=== PATIENT | female | born 1990 | race Hispanic/Latino ===

== ENCOUNTER 2016-10-01 16:41 | Emergency (ER) | payer MEDICAID ==
[2016-10-01 16:49] VITALS: BMI 32.0
[2016-10-01 16:53] VITALS: TEMP 98.6
--- NOTE | 2016-10-01 17:16 | ED PDOC ---
Arrival/HPI - General Chief Complaint: Syncope Time Seen by Provider: 10/01/16 16:46 Historian: Patient - History of Present Illness Narrative History of Present Illness (Text): 10/01/16 17:16 26 year old female with a past medical history that includes seizures presents to the Emergency department complaining of pelvic pain x 4 days. Patient stated pain is described as bilateral, contraction like. Patient also stated vaginal spotting x 2 days, and she passed a large blood clot, which she thinks it could be from miscarriage. Patient stated she had a positive home test done last week, but later she had a negative test. Patient also [place] She was told she had a mild seizure. Patient denies sob, cp, peacock, neck pain, rectal bleeding, dizziness, or abnormal gait. Time/Duration: < week Quality: Cramping Context: Home Past Medical History - Provider Review Nursing Documentation Reviewed: Yes - Infectious Disease Hx of Infectious Diseases: None - Tetanus Immunization Tetanus Immunization: Unknown - Cardiac Hx Cardiac Disorders: No - Pulmonary Hx Respiratory Disorders: Yes Hx Asthma: Yes - Neurological Hx Neurological Disorder: Yes Hx Seizures: Yes - HEENT Hx HEENT Disorder: No - Renal Hx Renal Disorder: No - Endocrine/Metabolic Hx Endocrine Disorders: No - Hematological/Oncological Hx Blood Disorders: Yes Hx Anemia: Yes - Integumentary Hx Dermatological Disorder: No - Musculoskeletal/Rheumatological Hx Musculoskeletal Disorders: Yes Hx Falls: Yes - Gastrointestinal Hx Gastrointestinal Disorders: No - Genitourinary/Gynecological Hx Genitourinary Disorders: No Other/Comment: 2 Miscarriages - Psychiatric Hx Psychophysiologic Disorder: No Hx Depression: No Hx Emotional Abuse: No Hx Physical Abuse: No Hx Substance Use: No - Surgical History Hx Cholecystectomy: Yes - Anesthesia Hx Anesthesia: Yes Hx Anesthesia Reactions: No Hx Malignant Hyperthermia: No - Suicidal Assessment Feels Threatened In Home Enviroment: No Family/Social History - Physician Review Nursing Documentation Reviewed: Yes Family/Social History: No Known Family HX Smoking Status: Heavy Smoker > 10 Cigarettes Daily Hx Alcohol Use: No Hx Substance Use: No Hx Substance Use Treatment: No Allergies/Home Meds Allergies/Adverse Reactions: Allergies No Known Allergies Allergy (Verified 10/01/16 16:53) Review of Systems - Review of Systems Constitutional: Normal. absent: Fatigue, Weight Change, Fevers Eyes: Normal ENT: Normal Respiratory: Normal Cardiovascular: Normal Gastrointestinal: Normal Genitourinary Female: Other (pelvi pain). absent: Dysuria, Frequency, Hematuria Musculoskeletal: Normal Skin: Normal Neurological: Normal Endocrine: Normal Hemo/Lymphatic: Normal Psychiatric: Normal Physical Exam Vital Signs Temp Pulse Resp BP Pulse Ox 10/01/16 19:59 78 18 109/53 L 100 10/01/16 16:50 98.6 F 97 H 16 126/80 99 Temperature: Afebrile Blood Pressure: Normal Pulse: Regular Respiratory Rate: Normal Appearance: Positive for: Well-Appearing, Non-Toxic, Comfortable Pain Distress: None Mental Status: Positive for: Alert and Oriented X 3 - Systems Exam Head: Present: Atraumatic, Normocephalic Pupils: Present: PERRL Extroacular Muscles: Present: EOMI Conjunctiva: Present: Normal Ears: Present: NORMAL TM, Normal Canal. No: Erythema, TM Bulging, Fluid, TM Perf Mouth: Present: Moist Mucous Membranes Pharnyx: Present: Normal. No: ERYTHEMA, EXUDATE, TONSILS ENLARGED Neck: Present: Normal Range of Motion. No: Meningeal Signs Respiratory/Chest: Present: Clear to Auscultation, Good Air Exchange. No: Respiratory Distress, Accessory Muscle Use Cardiovascular: Present: Regular Rate and Rhythm, Normal S1, S2. No: Murmurs Abdomen: Present: Normal Bowel Sounds. No: Tenderness, Distention, Peritoneal Signs, Rebound, Guarding Genitourinary/Pelvic Exam: Present: Other (Deferred by patient) Back: Present: Normal Inspection. No: CVA Tenderness Upper Extremity: Present: Normal Inspection, Normal ROM, NORMAL PULSES. No: Cyanosis, Edema Lower Extremity: Present: Normal Inspection, NORMAL PULSES, Normal ROM. No: Edema Neurological: Present: GCS=15, CN II-XII Intact, Speech Normal Skin: Present: Warm, Dry, Normal Color. No: Rashes Psychiatric: Present: Alert, Oriented x 3, Normal Insight, Normal Concentration Medical Decision Making ED Course and Treatment: 10/01/16 19:35 Re-evaluation. Patient feels better. Discussed results and plan with patient who expresses understanding. All questions answered and there is agreement with the plan to discharge home with instructions. Patient stable for discharge. Return if symptoms persist or worsen. I reviewed lab result which shows negative for . Pelvic u/s shows no acute changes Re-evaluation Time: 19:35 Reassessment Condition: Re-examined, Improved - Lab Interpretations Lab Results: 10/01/16 17:40 10/01/16 17:40 Lab Results 10/01/16 17:40: Urine Opiates Screen Positive H, Urine Methadone Screen Negative , Ur Barbiturates Screen Negative, Ur Phencyclidine Scrn Negative, Ur Amphetamines Screen Negative, U Benzodiazepines Scrn Positive H, U Oth Cocaine Metabols Negative, U Cannabinoids Screen Positive H 10/01/16 17:40: Urine Color Yellow, Urine Appearance Clear, Urine pH 7.0, Ur Specific [place] 1.010, Urine Protein Negative, Urine Glucose (UA) Negative, Urine Ketones Negative, Urine Blood Trace-lysed H, Urine Nitrate Negative, Urine Bilirubin Negative, Urine Urobilinogen 0.2, Ur Leukocyte Esterase Negative , Urine RBC 2 - 5, Urine WBC 5 - 10, Ur Epithelial Cells 3 - 4, Urine Bacteria Few, Urine HCG, Qual Negative 10/01/16 17:40: Beta HCG, Quant < 2.39 10/01/16 17:40: Sodium 141, Potassium 3.7, Chloride 104, Carbon Dioxide 29, Anion Gap 12, BUN 12, Creatinine 0.7, Est GFR ( Amer) > 60, Est GFR (Non- Af Amer) > 60, Random Glucose 93, Calcium 9.2, Total Bilirubin 0.7, AST 46 H, ALT 37, Alkaline Phosphatase 61, Total Protein 7.2, Albumin 4.1, Globulin 3.2, Albumin/Globulin Ratio 1.3 10/01/16 17:40: PT 11.1, INR 1.03, APTT 26.2 10/01/16 17:40: WBC 9.8, RBC 5.49, Hgb 10.9 L, Hct 33.5 L, MCV 61.0 L, MCH 19.9 L, MCHC 32.5, RDW 16.9 H, Plt Count 278, Gran % 73.8 H, Lymph % (Auto) 21.1 L, Yancey % (Auto) 4.7, Eos % (Auto) 0.2 L, Baso % (Auto) 0.2, Gran # 7.26 H, Lymph # 2.1, Yancey # 0.5, Eos # 0.0, Baso # 0.02 I have reviewed the lab results: Yes Interpretation: Abnormal lab values - RAD Interpretation Narrative RAD Interpretations (Text): [facility] Division of Radiology [address] [place] [address] Tel. no. Patient Name: LUL LAMAR Pt. Address: [address] [place] [address] Rec #: [id number] [place] [address]: Soraya Silver PA-C Pt Order Location: ED : 1990 Female Age: 26 Order #: [id number] Reason for exam: pelvic pain Ultrasound TRANSVAGINAL Exam Date: 10/01/16 This imaging exam was performed at [facility] EXAM: US Pelvis Complete, Transabdominal CLINICAL HISTORY: 26 years old, female; Pain; Pelvic pain TECHNIQUE: Real-time transabdominal pelvic ultrasound (complete) with image documentation. COMPARISON: There are no prior studies for comparison. FINDINGS: Bladder: Bladder is incompletely distended which limits evaluation. Uterus: Uterus is anteflexed. Uterus measures approximately 8.5 x 3.1 x 5 cm. . Endometrium measures approximately 8 mm in width. Adnexa: Right ovary measures approximately 3.4 x 2.2 x 3.1 cm. There are multiple small follicles. Left ovary could not be identified IMPRESSION: Limited transabdominal pelvic ultrasound with nonvisualization of the left ovary; normal appearing uterus and right ovary EXAM: US Pelvis, Transvaginal CLINICAL HISTORY: 26 years old, female; Pain; Pelvic pain TECHNIQUE: Real-time transvaginal pelvic ultrasound (complete) with image documentation. Transvaginal imaging was used for better evaluation of the endometrium and adnexa. EXAM DATE/TIME: 10/01/2016 5:30 PM COMPARISON: There are no prior studies for comparison. FINDINGS: Uterus measures approximately 8 x 4 x 5 cm. Endometrium measures approximately 8mm in width. Right ovary: Right ovary measures approximately 3.93 x 3.13 x 2.94 cm. There is a dominant follicle are seen 2.2 cm in maximal dimension. There are additional smaller follicles. There is expected blood flow on Doppler imaging Left ovary: Left ovary measures approximately 2.75 x 2.55 x 1.56 cm.There are multiple small follicles. There is intraovarian blood flow. Cul-de-sac: There is trace free fluid in the cul-de-sac IMPRESSION: Normal transvaginal pelvic ultrasound Dictated By: Julia Ferrer MD, MD Dictated Date/Time: 10/01/162026 Signed By: Julia Ferrer MD Date Signed: 2026 Transcribed By: LUL Transcribe Date/Time : 10/01/162026 Radiology Orders: 10/01/16 17:30 TRANSVAGINAL [US] Stat - Medication Orders Current Medication Orders: Discontinued Medications Ceftriaxone Sodium (Rocephin) 250 mg IM STAT STA PRN Reason: Protocol Stop: 10/01/16 19:36 Last Admin: 10/01/16 19:57 Dose: 250 mg Doxycycline Hyclate (Doryx) 100 mg PO STAT STA PRN Reason: Protocol Stop: 10/01/16 19:37 Last Admin: 10/01/16 19:57 Dose: 100 mg Sodium Chloride (Sodium Chloride 0.9%) 500 mls @ 1,000 mls/hr IV .Q30M STA Stop: 10/01/16 17:59 Last Admin: 10/01/16 17:40 Dose: 1,000 mls/hr Levetiracetam (Keppra 500mg Ivpb) 500 mg in 100 mls @ 400 mls/hr IVPB STAT STA Stop: 10/01/16 18:24 Last Admin: 10/01/16 18:50 Dose: 400 mls/hr Lidocaine HCl (Lidocaine 1% (20ml)) Confirm Administered Dose 20 ml .ROUTE .STK- MED ONE Stop: 10/01/16 19:52 Last Admin: 10/01/16 19:57 Dose: 1 ml Morphine Sulfate (Morphine) Confirm Administered Dose 2 mg .ROUTE .STK-MED ONE Stop: 10/01/16 19:22 Last Admin: 10/01/16 19:27 Dose: Morphine Sulfate (Morphine) 2 mg IVP STAT STA Stop: 10/01/16 19:26 Last Admin: 10/01/16 19:27 Dose: 2 mg Ondansetron HCl (Zofran Inj) 4 mg IVP STAT STA Stop: 10/01/16 17:31 Last Admin: 10/01/16 17:40 Dose: 4 mg Disposition/Present on Arrival - Present on Arrival Any Indicators Present on Arrival: No History of DVT/PE: No History of Uncontrolled Diabetes: No Urinary Catheter: No History of Decub. Ulcer: No History Surgical Site Infection Following: None - Disposition Have Diagnosis and Disposition been Completed?: Yes Diagnosis: Acute cystitis, Pelvic pain, Polysubstance abuse Disposition: HOME/ ROUTINE Disposition Time: 19:37 Patient Plan: Discharge Condition: GOOD Discharge Instructions (ExitCare): Urinary Tract Infection in Women (ED), Pelvic Pain in Women (ED) Additional Instructions: Call private doctor for follow up visit in 1-2 days. Take medication as instructed. Avoid excessive sun exposure. Take medication with food. Return to emergency if symptoms worsen. Prescriptions: Cephalexin [Keflex] 500 mg PO BID #10 capsule Doxycycline Monohydrate 100 mg PO BID #14 tablet Phenazopyridine HCl [Pyridium] 200 mg PO TID #9 tablet Referrals: PCP,NO [Primary Care Provider] - Follow up with primary [facility] [Outside] - [facility] with [facility] [Outside] - Follow up with primary Forms: WORK NOTE
[2016-10-01] MEDS ORDERED: Sodium Chloride 0.9% 500 ML IV STA (17:30)
[2016-10-01 17:51] LABS: ADD MANUAL DIFF? NO
[2016-10-01] MEDS ORDERED: levETIRAcetam 500mg IVPB 500 MG/100 ML BAG IVPB STA (18:10)
[2016-10-01 18:33] LABS: BASO # 0.02 K/mm3 (0.0-2.0); BASO % 0.2 % (0.0-3.0); EOS % 0.2 % (1.5-5.0); GRAN # 7.26 (1.4-6.5); GRAN % 73.8 % (50.0-68.0); HEMATOCRIT 33.5 % (36.0-48.0); LYMPH # 2.1 (1.2-3.4); LYMPH % 21.1 % (22.0-35.0); MEAN CORPUSCULAR HEMOGLOBIN 19.9 pg (25.0-35.0); MEAN CORPUSCULAR HGB CONC 32.5 g/dl (31.0-37.0); MONO # 0.5 (0.1-0.6); MONO % 4.7 % (1.0-6.0); PLATELET COUNT 278 10^3/uL (120.0-450.0); RED CELL DISTRIBUTION WIDTH 16.9 % (11.5-14.5); WHITE BLOOD COUNT 9.8 10^3/ul (4.5-11.0)
[2016-10-01 18:39] LABS: URINE BILIRUBIN NEGATIVE (NEGATIVE); URINE BLOOD TRACE-LYSED (NEGATIVE); URINE GLUCOSE (UA) NEGATIVE (NEGATIVE); URINE KETONE NEGATIVE (NEGATIVE); URINE LEUKOCYTE ESTERASE NEGATIVE Leu/uL (NEGATIVE); URINE PROTEIN NEGATIVE mg/dL (<30 mg/dL); URINE UROBILINOGEN 0.2 E.U./dL (<1 E.U./dL)
[2016-10-01 18:41] LABS: ALB/GLOB RATIO 1.3 (1.1-1.8); ALKALINE PHOSPHATASE 61 U/L (38-133); ALT/SGPT 37 U/L (7-56); AST/SGOT 46 U/L (15-39); BILIRUBIN,TOTAL 0.7 mg/dL (0.2-1.3); BLOOD UREA NITROGEN 12 mg/dL (7-21); CALCIUM 9.2 mg/dL (8.4-10.5); CARBON DIOXIDE 29 mmol/L (21-33); CHLORIDE 104 mmol/L (98-107); GFR AFRICAN-AMERICAN > 60; GLUCOSE,RANDOM 93 mg/dL (70-110); POTASSIUM 3.7 mmol/L (3.6-5.0); SODIUM 141 mmol/L (132-148); TOTAL PROTEIN 7.2 g/dL (5.8-8.3)
[2016-10-01 18:45] LABS: URINE APPEARANCE CLEAR (CLEAR); URINE COLOR YELLOW (YELLOW)
[2016-10-01 18:58] LABS: URINE BACTERIA FEW (NEG)
[2016-10-01 18:59] LABS: INR 1.03 (0.93-1.08); PARTIAL THROMBOPLASTIN TIME 26.2 Seconds (23.7-30.8)
[2016-10-01] MEDS ORDERED: Morphine 2 mg/ml ISec ONE (19:21)
[2016-10-01] MEDS ORDERED: Morphine 2 mg/ml ISec IVP STA (19:25)
[2016-10-01] MEDS ORDERED: cefTRIAXone (Rocephin) 250 mg Inj IM STA (19:35)
[2016-10-01] MEDS ORDERED: Lidocaine 1% Inj (20ml) ONE (19:51)
[2016-10-01 20:00] VITALS: BP 109/53; PULSE 78; RESP 18; O2SAT 100
--- NOTE | 2016-10-01 21:05 | US ---
EXAM: US Pelvis Complete, Transabdominal CLINICAL HISTORY: 26 years old, female; Pain; Pelvic pain TECHNIQUE: Real-time transabdominal pelvic ultrasound (complete) with image documentation. COMPARISON: There are no prior studies for comparison. FINDINGS: Bladder: Bladder is incompletely distended which limits evaluation. Uterus: Uterus is anteflexed. Uterus measures approximately 8.5 x 3.1 x 5 cm. . Endometrium measures approximately 8 mm in width. Adnexa: Right ovary measures approximately 3.4 x 2.2 x 3.1 cm. There are multiple small follicles. Left ovary could not be identified IMPRESSION: Limited transabdominal pelvic ultrasound with nonvisualization of the left ovary; normal appearing uterus and right ovary EXAM: US Pelvis, Transvaginal CLINICAL HISTORY: 26 years old, female; Pain; Pelvic pain TECHNIQUE: Real-time transvaginal pelvic ultrasound (complete) with image documentation. Transvaginal imaging was used for better evaluation of the endometrium and adnexa. EXAM DATE/TIME: 10/01/2016 5:30 PM COMPARISON: There are no prior studies for comparison. FINDINGS: Uterus measures approximately 8 x 4 x 5 cm. Endometrium measures approximately 8mm in width. Right ovary: Right ovary measures approximately 3.93 x 3.13 x 2.94 cm. There is a dominant follicle are seen 2.2 cm in maximal dimension. There are additional smaller follicles. There is expected blood flow on Doppler imaging Left ovary: Left ovary measures approximately 2.75 x 2.55 x 1.56 cm.There are multiple small follicles. There is intraovarian blood flow. Cul-de-sac: There is trace free fluid in the cul-de-sac IMPRESSION: Normal transvaginal pelvic ultrasound
== END 2016-10-01 20:13 | disposition home or self-care (01) ==
LOC: ED 16:41
DX: N30.00 Acute cystitis without hematuria (principal); R10.2 Pelvic and perineal pain; F19.10 Other psychoactive substance abuse, uncomplicated; D64.9 Anemia, unspecified
CPT/HCPCS: 76830; 80053; 80324; 80345; 80346; 80349; 80353; 80358; 80361; 81001; 83992; 84702; 84703; 85025; 85610; 85730; 96372; 96374; 96375; 99285; J0696; J1953; J2270; J2405; J7040

== ENCOUNTER 2016-10-12 09:54 | Emergency (ER) | payer MEDICAID ==
[2016-10-12 10:00] VITALS: BMI 47.8
[2016-10-12 10:03] VITALS: TEMP 98.8; O2SAT 100
--- NOTE | 2016-10-12 10:13 | ED PDOC ---
Arrival/HPI - General Chief Complaint: Abdominal Pain Time Seen by Provider: 10/12/16 10:07 Historian: Patient - History of Present Illness Narrative History of Present Illness (Text): 10/12/16 10:10 26 y/o female, pmh including seizure/ovarian cyst, nkda, c/o lt. pelvic cramp started this morning x 1 day. Pt. stated that the pelvic cramp started this morning, lt. pelvic region, no nausea or vomiting, last bowel movement was this morning, no night sweat, no dizziness, no night sweat, no headache, no vaginal bleeding or discharge, no numbness or tingling, no fever or chills, no change in appetize, no other medical or psychological complaints. Past Medical History - Provider Review Nursing Documentation Reviewed: Yes - Infectious Disease Hx of Infectious Diseases: None - Tetanus Immunization Tetanus Immunization: Unknown - Cardiac Hx Cardiac Disorders: No - Pulmonary Hx Respiratory Disorders: Yes Hx Asthma: Yes - Neurological Hx Neurological Disorder: Yes Hx Seizures: Yes - HEENT Hx HEENT Disorder: No - Renal Hx Renal Disorder: No - Endocrine/Metabolic Hx Endocrine Disorders: No - Hematological/Oncological Hx Blood Disorders: Yes Hx Anemia: Yes - Integumentary Hx Dermatological Disorder: No - Musculoskeletal/Rheumatological Hx Musculoskeletal Disorders: Yes Hx Falls: Yes - Gastrointestinal Hx Gastrointestinal Disorders: No - Genitourinary/Gynecological Hx Genitourinary Disorders: No - Psychiatric Hx Psychophysiologic Disorder: No Hx Depression: No Hx Emotional Abuse: No Hx Physical Abuse: No Hx Substance Use: No - Surgical History Hx Cholecystectomy: Yes - Anesthesia Hx Anesthesia: Yes Hx Anesthesia Reactions: No Hx Malignant Hyperthermia: No - Suicidal Assessment Feels Threatened In Home Enviroment: No Family/Social History - Physician Review Nursing Documentation Reviewed: Yes Family/Social History: Unknown Family HX Smoking Status: Heavy Smoker > 10 Cigarettes Daily Hx Alcohol Use: No Hx Substance Use: No Hx Substance Use Treatment: No Allergies/Home Meds Allergies/Adverse Reactions: Allergies No Known Allergies Allergy (Verified 10/12/16 09:59) Review of Systems - Review of Systems Constitutional: absent: Fatigue, Fevers Eyes: absent: Vision Changes ENT: absent: Hearing Changes Respiratory: absent: SOB, Cough Cardiovascular: absent: Chest Pain Gastrointestinal: absent: Abdominal Pain, Nausea, Vomiting Genitourinary Female: Other (pelvic pain). absent: Dysuria, Frequency, Hematuria, Urine Output Changes, Vaginal Bleeding, Vaginal Discharge Skin: absent: Rash, Pruritis, Skin Lesions, Laceration, Abscess, Ulcer, Cellulitis Psychiatric: absent: Anxiety, Depression, Suicidal Ideation Physical Exam Vital Signs Reviewed: Yes Vital Signs Temp Pulse Resp BP Pulse Ox 10/12/16 10:00 98.8 F 78 16 115/79 100 Temperature: Afebrile Blood Pressure: Normal Pulse: Regular Respiratory Rate: Normal Appearance: Positive for: Well-Appearing, Non-Toxic, Comfortable Pain Distress: Moderate Mental Status: Positive for: Alert and Oriented X 3 - Systems Exam Head: Present: Atraumatic, Normocephalic Pupils: Present: PERRL Extroacular Muscles: Present: EOMI Conjunctiva: Present: Normal Mouth: Present: Moist Mucous Membranes Neck: Present: Normal Range of Motion Respiratory/Chest: Present: Clear to Auscultation, Good Air Exchange. No: Respiratory Distress, Accessory Muscle Use Cardiovascular: Present: Regular Rate and Rhythm, Normal S1, S2. No: Murmurs Abdomen: Present: Normal Bowel Sounds. No: Tenderness, Distention, Peritoneal Signs, Rebound, Guarding, Hernias Genitourinary/Pelvic Exam: Present: Other (Pt. refused pelvic examination. ) Back: Present: Normal Inspection. No: CVA Tenderness, Midline Tenderness, Paraspinal Tenderness, Pain with Leg Raise, Decubitus Ulcer Upper Extremity: Present: Normal Inspection. No: Cyanosis, Edema Lower Extremity: Present: Normal Inspection. No: Edema Neurological: Present: GCS=15, Speech Normal, Motor Func Grossly Intact, Gait Normal, Memory Normal Skin: Present: Warm, Dry, Normal Color. No: Rashes Lymphatic: No: Cervical Adenopathy Psychiatric: Present: Alert, Oriented x 3, Normal Insight, Normal Concentration Medical Decision Making ED Course and Treatment: 10/12/16 10:19 -ua -transvaginal sonogram -Toradol IM -observe and reassess 10/12/16 11:36 -UA show no UTI -Sonogram show ovarian cysts, advised repeat sonogram in 6-8 weeks with the obgyn -Pain decreased which she will like additional pain med, percocet order, will discharge home. -Discharge home with the naproxen, repeat the sonogram within 6-8 weeks or sooner if needed, follow up with your own pmd and obgyn within 2 days, return to the ER for any new or worsening signs or symptoms. - Lab Interpretations Lab Results: Lab Results 10/12/16 10:20: Urine Color Yellow, Urine Appearance Sl cloudy, Urine pH 6.5, Ur Specific [place] 1.020, Urine Protein Negative, Urine Glucose (UA) Negative, Urine Ketones Negative, Urine Blood Moderate H, Urine Nitrate Negative, Urine Bilirubin Negative, Urine Urobilinogen 0.2, Ur Leukocyte Esterase Negative, Urine RBC 5 - 10, Urine WBC 2 - 5, Ur Epithelial Cells 6 - 8, Urine Bacteria Mod I have reviewed the lab results: Yes Interpretation: No clinic. lab abnormalty - RAD Interpretation Radiology Orders: 10/12/16 10:13 TRANSVAGINAL [US] Stat TECHNIQUE: Transabdominal and transvaginal FINDINGS: UTERUS: Measures 7.0 x 4.5 x 5.5 cm. Normal in size and appearance. No fibroid or other mass lesion seen. ENDOMETRIUM: Measures 10 mm in diameter. Unremarkable. CERVIX: No cervical abnormality identified. RIGHT OVARY: Measures 5.0 x 3.5 x 3.9 cm. No solid mass. Normal flow. Two complex cystic masses, 1.9 x 1.6 x 2.1 cm and 1.7 x 1.3 x 2.1 cm. Heterogeneous internal echoes are noted within the cysts. Likely resolving hemorrhagic cyst. Followup transvaginal pelvic ultrasound examination is advised in 6-8 weeks. LEFT OVARY: Measures 3.2 x 2.3 x 2.6 cm. No solid mass. Normal flow. FREE FLUID: No significant free fluid noted. OTHER FINDINGS: None. IMPRESSION: Two complex right ovarian cysts, likely resolving hemorrhagic cyst. Followup transvaginal pelvic ultrasound examination is advised in 6-8 weeks. The examination is otherwise unremarkable. 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 Disposition/Present on Arrival - Present on Arrival Any Indicators Present on Arrival: No History of DVT/PE: No History of Uncontrolled Diabetes: No Urinary Catheter: No History of Decub. Ulcer: No History Surgical Site Infection Following: None - Disposition Have Diagnosis and Disposition been Completed?: Yes Diagnosis: Ovarian cyst Disposition: HOME/ ROUTINE Disposition Time: 11:37 Patient Plan: Discharge Patient Problems: Current Active Problems Problem Status Onset Ovarian cyst Acute Condition: IMPROVED Discharge Instructions (ExitCare): Ovarian Cyst (ED), Polycystic Ovarian Syndrome (ED) Print Language: HUNGARIAN Additional Instructions: Discharge home with the naproxen, repeat the sonogram within 6-8 weeks or sooner if needed, follow up with your own pmd and obgyn within 2 days, return to the ER for any new or worsening signs or symptoms. Prescriptions: Naproxen 500 mg PO BID PRN #20 tab PRN Reason: Other Referrals: PCP,NO [Primary Care Provider] - Follow up with primary Rebeca Hutchins MD [Medical Doctor] - Follow up with primary Forms: WORK NOTE
[2016-10-12 10:31] LABS: PH,URINE 6.5 (4.7-8.0); URINE BILIRUBIN NEGATIVE (NEGATIVE); URINE BLOOD MODERATE (NEGATIVE); URINE GLUCOSE (UA) NEGATIVE (NEGATIVE); URINE KETONE NEGATIVE (NEGATIVE); URINE LEUKOCYTE ESTERASE NEGATIVE Leu/uL (NEGATIVE); URINE PROTEIN NEGATIVE mg/dL (<30 mg/dL); URINE UROBILINOGEN 0.2 E.U./dL (<1 E.U./dL)
[2016-10-12 10:37] LABS: URINE APPEARANCE SL CLOUDY (CLEAR); URINE COLOR YELLOW (YELLOW)
[2016-10-12 10:46] LABS: URINE BACTERIA MOD (NEG)
--- NOTE | 2016-10-12 11:15 | US ---
HISTORY: lt. pelvic pain x 1 day COMPARISON: None available. TECHNIQUE: Transabdominal and transvaginal FINDINGS: UTERUS: Measures 7.0 x 4.5 x 5.5 cm. Normal in size and appearance. No fibroid or other mass lesion seen. ENDOMETRIUM: Measures 10 mm in diameter. Unremarkable. CERVIX: No cervical abnormality identified. RIGHT OVARY: Measures 5.0 x 3.5 x 3.9 cm. No solid mass. Normal flow. Two complex cystic masses, 1.9 x 1.6 x 2.1 cm and 1.7 x 1.3 x 2.1 cm. Heterogeneous internal echoes are noted within the cysts. Likely resolving hemorrhagic cyst. Followup transvaginal pelvic ultrasound examination is advised in 6-8 weeks. LEFT OVARY: Measures 3.2 x 2.3 x 2.6 cm. No solid mass. Normal flow. FREE FLUID: No significant free fluid noted. OTHER FINDINGS: None. IMPRESSION: Two complex right ovarian cysts, likely resolving hemorrhagic cyst. Followup transvaginal pelvic ultrasound examination is advised in 6-8 weeks. The examination is otherwise unremarkable.
[2016-10-12] MEDS ORDERED: Oxycodone/Acetaminophen 5/325 mg Tab PO STA (11:42)
[2016-10-12 12:01] VITALS: BP 108/66; PULSE 70; RESP 18
== END 2016-10-12 12:01 | disposition home or self-care (01) ==
LOC: ED 09:54
DX: N83.201 Unspecified ovarian cyst, right side (principal)
CPT/HCPCS: 76830; 81001; 96372; 99283; J1885

== ENCOUNTER 2016-10-15 09:21 | Emergency (ER) | payer MEDICAID ==
[2016-10-15 09:27] VITALS: BMI 31.1
[2016-10-15 09:38] VITALS: BP 125/81; PULSE 87; RESP 18; TEMP 98.4; O2SAT 100
[2016-10-15] MEDS ORDERED: Sodium Chloride 0.9% 1,000 ML IV STA (09:40)
[2016-10-15 09:51] LABS: ADD MANUAL DIFF? NO; URINE BILIRUBIN NEGATIVE (NEGATIVE); URINE BLOOD SMALL (NEGATIVE); URINE GLUCOSE (UA) NEGATIVE (NEGATIVE); URINE KETONE NEGATIVE (NEGATIVE); URINE LEUKOCYTE ESTERASE NEGATIVE Leu/uL (NEGATIVE); URINE PROTEIN NEGATIVE mg/dL (<30 mg/dL); URINE UROBILINOGEN 0.2 E.U./dL (<1 E.U./dL)
[2016-10-15 09:54] LABS: URINE APPEARANCE CLEAR (CLEAR); URINE COLOR YELLOW (YELLOW)
[2016-10-15 09:58] LABS: URINE BACTERIA FEW (NEG)
--- NOTE | 2016-10-15 09:59 | ED PDOC ---
Arrival/HPI - General Chief Complaint: Abdominal Pain Time Seen by Provider: 10/15/16 09:24 Historian: Patient - History of Present Illness Narrative History of Present Illness (Text): 10/15/16 09:48 26yr old female presents today with diffuse abdominal pain worsening since tuesday. pt states she was seen in the er twice for the same complaint and had 2 transvaginal ultrasounds. pt states she was treated with keflex for UTI on her first visit and states the pain improved slightly but has since returned. pt describes the pain as crampy,achy 8 out of 10 tenderness greatest in the lower abdomen. denies fever/chills. denies n/v/d. no urinary symptoms. no vaginal bleeding or discharge. no other complaints. Time/Duration: 1 week Symptom Onset: Gradual Symptom Course: Worsening Quality: Aching, Cramping Severity Level: 8 Past Medical History - Provider Review Nursing Documentation Reviewed: Yes - Travel History Have you recently traveled outside [place] w/in the past 3 mons?: No - Infectious Disease Hx of Infectious Diseases: None - Tetanus Immunization Tetanus Immunization: Unknown - Cardiac Hx Cardiac Disorders: No - Pulmonary Hx Respiratory Disorders: Yes Hx Asthma: Yes - Neurological Hx Neurological Disorder: Yes Hx Seizures: Yes - HEENT Hx HEENT Disorder: No - Renal Hx Renal Disorder: No - Endocrine/Metabolic Hx Endocrine Disorders: No - Hematological/Oncological Hx Blood Disorders: Yes Hx Anemia: Yes - Integumentary Hx Dermatological Disorder: No - Musculoskeletal/Rheumatological Hx Musculoskeletal Disorders: Yes - Gastrointestinal Hx Gastrointestinal Disorders: No - Genitourinary/Gynecological Hx Genitourinary Disorders: No Other/Comment: L ovarian cyst - Psychiatric Hx Psychophysiologic Disorder: No Hx Substance Use: No - Surgical History Hx Cholecystectomy: Yes - Anesthesia Hx Anesthesia: Yes Hx Anesthesia Reactions: No Hx Malignant Hyperthermia: No - Suicidal Assessment Feels Threatened In Home Enviroment: No Family/Social History - Physician Review Nursing Documentation Reviewed: Yes Family/Social History: Unknown Family HX Smoking Status: Heavy Smoker > 10 Cigarettes Daily Hx Alcohol Use: No Hx Substance Use: No Hx Substance Use Treatment: No Allergies/Home Meds Allergies/Adverse Reactions: Allergies No Known Allergies Allergy (Verified 10/12/16 09:59) Review of Systems - Review of Systems Constitutional: absent: Fatigue, Fevers Respiratory: absent: SOB, Cough Cardiovascular: absent: Chest Pain, Palpitations Gastrointestinal: Abdominal Pain. absent: Constipation, Diarrhea, Nausea, Vomiting, Appetite Changes Genitourinary Female: absent: Dysuria, Frequency, Hematuria, Vaginal Bleeding, Vaginal Discharge Musculoskeletal: absent: Arthralgias, Back Pain, Neck Pain Skin: absent: Rash, Pruritis Neurological: absent: Headache, Dizziness Psychiatric: absent: Anxiety, Depression Physical Exam Vital Signs Reviewed: Yes Vital Signs Temp Pulse Resp BP Pulse Ox 10/15/16 09:37 98.4 F 87 18 125/81 100 Temperature: Afebrile Blood Pressure: Normal Pulse: Regular Respiratory Rate: Normal Appearance: Positive for: Well-Appearing, Non-Toxic, Uncomfortable Pain Distress: Mild Mental Status: Positive for: Alert and Oriented X 3 - Systems Exam Head: Present: Atraumatic Mouth: Present: Moist Mucous Membranes Neck: Present: Normal Range of Motion Respiratory/Chest: Present: Clear to Auscultation, Good Air Exchange. No: Respiratory Distress, Accessory Muscle Use Cardiovascular: Present: Regular Rate and Rhythm, Normal S1, S2. No: Murmurs Abdomen: Present: Tenderness (+ diffuse tenderness, greatest in lower abdomen), Normal Bowel Sounds, Guarding. No: Distention, Peritoneal Signs, Rebound Genitourinary/Pelvic Exam: Present: Normal External Genitalia, Vaginal Discharge (white vaginal discharge), Adenexal Mass, Cervical Motion Tendernes, Cervical os Closed, Odor, Other (chaparoned by SANDEEP MALONE) Back: Present: Normal Inspection. No: CVA Tenderness Upper Extremity: Present: Normal ROM Lower Extremity: Present: Normal ROM Neurological: Present: GCS=15 Skin: Present: Warm, Dry, Normal Color. No: Rashes Psychiatric: Present: Alert, Oriented x 3 Medical Decision Making ED Course and Treatment: 10/15/16 10:00 Patient is nontoxic well appearing with stable vital signs presenting with b/l lower abdominal pain old records reviewed. [place] [employer] aware website checked; no rx's filled. pt given toradol for pain. CBC wnl CMP wnl Lipasewnl Urinalysis + blood CAT scan:FINDINGS: LOWER THORAX: No visible consolidation, pleural effusion, or pneumothorax. LIVER: Unremarkable. GALLBLADDER AND BILE DUCTS: Cholecystectomy. PANCREAS: Unremarkable. SPLEEN: Unremarkable. ADRENALS: Unremarkable. KIDNEYS AND URETERS: The kidneys enhance symmetrically. No hydronephrosis or obstructing calculus identified. VASCULATURE: No aortic aneurysm. BOWEL: Stomach is nondistended. Lack of oral contrast limits evaluation for bowel pathology. Bowel loops appear within normal limits of caliber without evidence of obstruction. Mild-to- moderate constipation. APPENDIX: The appendix appears within normal limits of caliber. No secondary signs of acute appendicitis. PERITONEUM: No significant free fluid. No definite free air. LYMPH NODES: Sub cm mesenteric, retroperitoneal, and bilateral inguinal lymph nodes, nonspecific. BLADDER: Unremarkable. REPRODUCTIVE: The uterus is present. 2.5 x 2.2 cm right adnexal low-density lesion, likely ovarian cyst. BONES: No acute osseous abnormality is detected. OTHER FINDINGS: None. IMPRESSION: 2.5 x 2.2 cm right adnexal low-density lesion, likely ovarian cyst. Pelvic ultrasound may be considered for further evaluation. Mild to moderate constipation. Cholecystectomy. Additional incidental findings as above. Patient reassessment:pt feeling better with medications; still with slight left sided pelvic tenderness; pt with white foul smelling vaginal discharge; pt was partially treated and then had intercourse with partner during treatment; will send GC/chlamydia cultures and have patient f/u with [employer]. will treat in er with rocephin and zithromax. Will d/c home with doxycycline x 14 days. i discussed all findings in depth with the patient; stressed importance of f/u with [employer] and avoiding sexual intercourse until further evaluation with [employer] and test results. advised immediate return if symptoms worsen,persist or if new symptoms develop. Patient verbalizes understanding of discharge instructions and need for immediate followup. all aspects of this case were discussed the attending of record. Impression: pelvic pain, ovarian cyst, vaginal discharge Motrin every 6 hours as needed for pain Tramadol 1 tablet every 6 hours as needed for moderate to severe pain: May cause drowsiness doxycycline; 1 tablet twice daily x 14 days. Follow-up with fashion design professor within the next 2 days follow-up with the primary care physician within the next 2 days Return immediately if symptoms worsen, persist or if new concerning symptoms develop. - Lab Interpretations Lab Results: 10/15/16 09:00 10/15/16 09:00 Lab Results 10/15/16 09:00: WBC 10.0, RBC 5.86, Hgb 11.8 L, Hct 34.7 L, MCV 59.2 L, MCH 20.1 L, MCHC 34.0, RDW 18.9 H, Plt Count 328, Gran % 68.3 H, Lymph % (Auto) 22.1 , Benson % (Auto) 7.5 H, Eos % (Auto) 1.8, Baso % (Auto) 0.3, Gran # 6.85 H, Lymph # 2.2, Benson # 0.8 H, Eos # 0.2, Baso # 0.03 10/15/16 09:00: Sodium 141, Potassium 4.2, Chloride 106, Carbon Dioxide 27, Anion Gap 12, BUN 18, Creatinine 0.7, Est GFR ( Amer) > 60, Est GFR (Non- Af Amer) > 60, Random Glucose 95, Calcium 9.1, Total Bilirubin 0.5, AST 22, ALT 24, Alkaline Phosphatase 58, Total Protein 7.2, Albumin 4.0, Globulin 3.2, Albumin/Globulin Ratio 1.3, Lipase 122 10/15/16 09:00: Urine Color Yellow, Urine Appearance Clear, Urine pH 7.0, Ur Specific [place] 1.020, Urine Protein Negative, Urine Glucose (UA) Negative, Urine Ketones Negative, Urine Blood Small H, Urine Nitrate Negative, Urine Bilirubin Negative, Urine Urobilinogen 0.2, Ur Leukocyte Esterase Negative, Urine RBC 2 - 5, Urine WBC 1 - 3, Ur Epithelial Cells 1 - 3, Urine Bacteria Few , Urine HCG, Qual Negative - RAD Interpretation Radiology Orders: 10/15/16 09:40 ABD & PELVIS IV CONTRAST ONLY [CT] Stat - Medication Orders Current Medication Orders: Discontinued Medications Azithromycin (Zithromax) 1,000 mg PO STAT STA PRN Reason: Protocol Stop: 10/15/16 11:50 Last Admin: 10/15/16 11:59 Dose: 1,000 mg Comments: 1000mg PO Ceftriaxone Sodium (Rocephin) 250 mg IM STAT STA PRN Reason: Protocol Stop: 10/15/16 11:50 Last Admin: 10/15/16 11:57 Dose: 250 mg Comments: . Sodium Chloride (Sodium Chloride 0.9%) 1,000 mls @ 999 mls/hr IV .Q1H1M STA Stop: 10/15/16 10:40 Last Admin: 10/15/16 11:01 Dose: 999 mls/hr Iohexol (Omnipaque 350 100 Ml) Confirm Administered Dose 350 mg .ROUTE .STK-MED ONE Stop: 10/15/16 10:15 Ketorolac Tromethamine (Toradol) 30 mg IVP STAT STA Stop: 10/15/16 09:41 Last Admin: 10/15/16 11:02 Dose: 30 mg Disposition/Present on Arrival - Present on Arrival Any Indicators Present on Arrival: No History of DVT/PE: No History of Uncontrolled Diabetes: No Urinary Catheter: No History of Decub. Ulcer: No History Surgical Site Infection Following: None - Disposition Have Diagnosis and Disposition been Completed?: Yes Diagnosis: Pelvic pain, Vaginal discharge, Ovarian cyst Disposition: HOME/ ROUTINE Disposition Time: 12:05 Patient Plan: Discharge Condition: GOOD Discharge Instructions (ExitCare): Pelvic Pain in Women (ED), Vaginal Discharge (ED) Additional Instructions: Motrin every 6 hours as needed for pain Tramadol 1 tablet every 6 hours as needed for moderate to severe pain: May cause drowsiness doxycycline; 1 tablet twice daily x 14 days. Follow-up with fashion design professor within the next 2 days follow-up with the primary care physician within the next 2 days Return immediately if symptoms worsen, persist or if new concerning symptoms develop. Prescriptions: Doxycycline Hyclate 100 mg PO BID #28 cap traMADol [Ultram] 50 mg PO Q6H PRN #6 tab PRN Reason: moderate to severe pain Referrals: Nico Kimble MD [Staff Provider] - [facility] with [facility] [Outside] - Follow up with primary [facility] [place] [facility] [place] Follow up with primary Kostas Olmedo MD [Staff Provider] - Follow up with primary Forms: WORK NOTE
[2016-10-15 10:01] LABS: BASO # 0.03 K/mm3 (0.0-2.0); BASO % 0.3 % (0.0-3.0); EOS # 0.2 (0.0-0.7); EOS % 1.8 % (1.5-5.0); GRAN # 6.85 (1.4-6.5); GRAN % 68.3 % (50.0-68.0); HEMATOCRIT 34.7 % (36.0-48.0); LYMPH # 2.2 (1.2-3.4); LYMPH % 22.1 % (22.0-35.0); MEAN CELL VOLUME 59.2 fL (80.0-105.0); MEAN CORPUSCULAR HEMOGLOBIN 20.1 pg (25.0-35.0); MONO # 0.8 (0.1-0.6); MONO % 7.5 % (1.0-6.0); PLATELET COUNT 328 10^3/uL (120.0-450.0); RED CELL DISTRIBUTION WIDTH 18.9 % (11.5-14.5)
[2016-10-15 10:06] LABS: ALB/GLOB RATIO 1.3 (1.1-1.8); ALKALINE PHOSPHATASE 58 U/L (38-133); ALT/SGPT 24 U/L (7-56); AST/SGOT 22 U/L (15-39); BILIRUBIN,TOTAL 0.5 mg/dL (0.2-1.3); BLOOD UREA NITROGEN 18 mg/dL (7-21); CALCIUM 9.1 mg/dL (8.4-10.5); CARBON DIOXIDE 27 mmol/L (21-33); CHLORIDE 106 mmol/L (98-107); GFR AFRICAN-AMERICAN > 60; GLUCOSE,RANDOM 95 mg/dL (70-110); LIPASE 122 U/L (23-300); POTASSIUM 4.2 mmol/L (3.6-5.0); SODIUM 141 mmol/L (132-148); TOTAL PROTEIN 7.2 g/dL (5.8-8.3)
[2016-10-15] MEDS ORDERED: Iohexol 350 MG/100 ML VIAL ONE (10:14)
--- NOTE | 2016-10-15 11:06 | CT ---
PROCEDURE: CT Abdomen and Pelvis with contrast HISTORY: abd pain COMPARISON: None available TECHNIQUE: Contrast dose: 100 mL Omnipaque 350 Radiation dose: Total exam DLP = 669.99 mGy-cm. This CT exam was performed using one or more of the following dose reduction techniques: Automated exposure control, adjustment of the mA and/or kV according to patient size, and/or use of iterative reconstruction technique. FINDINGS: LOWER THORAX: No visible consolidation, pleural effusion, or pneumothorax. LIVER: Unremarkable. GALLBLADDER AND BILE DUCTS: Cholecystectomy. PANCREAS: Unremarkable. SPLEEN: Unremarkable. ADRENALS: Unremarkable. KIDNEYS AND URETERS: The kidneys enhance symmetrically. No hydronephrosis or obstructing calculus identified. VASCULATURE: No aortic aneurysm. BOWEL: Stomach is nondistended. Lack of oral contrast limits evaluation for bowel pathology. Bowel loops appear within normal limits of caliber without evidence of obstruction. [id number] constipation. APPENDIX: The appendix appears within normal limits of caliber. No secondary signs of acute appendicitis. PERITONEUM: No significant free fluid. No definite free air. LYMPH NODES: Sub cm mesenteric, retroperitoneal, and bilateral inguinal lymph nodes, nonspecific. BLADDER: Unremarkable. REPRODUCTIVE: The uterus is present. 2.5 x 2.2 cm right adnexal low-density lesion, likely ovarian cyst. BONES: No acute osseous abnormality is detected. OTHER FINDINGS: None. IMPRESSION: 2.5 x 2.2 cm right adnexal low-density lesion, likely ovarian cyst. Pelvic ultrasound may be considered for further evaluation. Mild to moderate constipation. Cholecystectomy. Additional incidental findings as above.
[2016-10-15] MEDS ORDERED: cefTRIAXone (Rocephin) 250 mg Inj IM STA (11:49)
== END 2016-10-15 12:46 | disposition home or self-care (01) ==
LOC: ED 09:21
DX: R10.2 Pelvic and perineal pain (principal); N89.8 Other specified noninflammatory disorders of vagina; N83.201 Unspecified ovarian cyst, right side
CPT/HCPCS: 74177; 80053; 81001; 83690; 84703; 85025; 87491; 87591; 96372; 96374; 99283; J0696; J1885; J7040; Q9967

== ENCOUNTER 2016-12-08 08:03 | Emergency (ER) | payer MEDICAID ==
--- NOTE | 2016-12-08 09:50 | ED PDOC ---
Arrival/HPI - General Time Seen by Provider: 12/08/16 09:30 Historian: Patient - History of Present Illness Narrative History of Present Illness (Text): 12/08/16 08:20 Reyna Rhodes is a 26 year old patient, whose past medical history includes seizure disorder, ovarian cyst, nkda, who presents to the Emergency department complaining of right ankle pain since three days ago. Patient reports that she missed a step and twisted her right ankle and felt her right knee pop. Patient had been feeling fine but states that today she could not walk. Patient denies chest pain, shortness of breath, dizziness, lightheadedness, or palpitation. Patient did not hit their head. Patient denies any loss of consciousness, headache, fever, chills, cough, nausea, vomiting, diarrhea, visual changes, neck pain, or other complaints. PMD: Dr. Gorman Time/Duration: < week (3 days ago) Symptom Onset: Sudden Symptom Course: Unchanged Activities at Onset: Light Modifying Factors (Text): None Context: Walking Associated Symptoms (Text): right ankle pain and right knee pain Past Medical History - Provider Review Nursing Documentation Reviewed: Yes - Infectious Disease Hx of Infectious Diseases: None - Tetanus Immunization Tetanus Immunization: Unknown - Cardiac Hx Cardiac Disorders: No - Pulmonary Hx Respiratory Disorders: Yes Hx Asthma: Yes - Neurological Hx Neurological Disorder: Yes Hx Seizures: Yes - HEENT Hx HEENT Disorder: No - Renal Hx Renal Disorder: No - Endocrine/Metabolic Hx Endocrine Disorders: No - Hematological/Oncological Hx Blood Disorders: Yes Hx Anemia: Yes - Integumentary Hx Dermatological Disorder: No - Musculoskeletal/Rheumatological Hx Musculoskeletal Disorders: Yes - Gastrointestinal Hx Gastrointestinal Disorders: No - Genitourinary/Gynecological Hx Genitourinary Disorders: No Other/Comment: L ovarian cyst - Psychiatric Hx Psychophysiologic Disorder: No Hx Substance Use: No - Surgical History Hx Cholecystectomy: Yes - Anesthesia Hx Anesthesia: Yes Hx Anesthesia Reactions: No Hx Malignant Hyperthermia: No - Suicidal Assessment Feels Threatened In Home Enviroment: No Family/Social History - Physician Review Nursing Documentation Reviewed: Yes Family/Social History: Unknown Family HX Smoking Status: Heavy Smoker > 10 Cigarettes Daily Hx Alcohol Use: No Hx Substance Use: No Hx Substance Use Treatment: No Allergies/Home Meds Allergies/Adverse Reactions: Allergies No Known Allergies Allergy (Verified 12/08/16 10:07) Home Medications: Home Meds Medication Instructions Recorded Confirmed Hydrocodone/Acetaminophen 5 mg PO PRN PRN MDD 6 12/08/16 12/08/16 Review of Systems - Physician Review All systems were reviewed & negative as marked: Yes - Review of Systems Constitutional: absent: Fevers Eyes: absent: Vision Changes Respiratory: absent: SOB Cardiovascular: absent: Chest Pain Musculoskeletal: Other (right knee pain and right ankle pain) Physical Exam Vital Signs Temp Pulse Resp BP Pulse Ox 12/08/16 10:03 98.5 F 63 16 119/78 100 Temperature: Afebrile Blood Pressure: Normal Pulse: Regular Respiratory Rate: Normal Appearance: Positive for: Well-Appearing, Non-Toxic, Comfortable Pain Distress: None Mental Status: Positive for: Alert and Oriented X 3 - Systems Exam Head: Present: Atraumatic, Normocephalic Pupils: Present: PERRL Extroacular Muscles: Present: EOMI Conjunctiva: Present: Normal Mouth: Present: Moist Mucous Membranes Neck: Present: Normal Range of Motion Respiratory/Chest: Present: Clear to Auscultation, Good Air Exchange. No: Respiratory Distress, Accessory Muscle Use Cardiovascular: Present: Regular Rate and Rhythm, Normal S1, S2. No: Murmurs Abdomen: Present: Normal Bowel Sounds. No: Tenderness, Distention, Peritoneal Signs Back: Present: Normal Inspection Upper Extremity: Present: Normal Inspection. No: Cyanosis, Edema Lower Extremity: Present: Edema (right knee and right ankle ), Tenderness ( right knee), Other (right knee ecchymosis) Neurological: Present: GCS=15, CN II-XII Intact, Speech Normal Skin: Present: Warm, Dry, Normal Color. No: Rashes Psychiatric: Present: Alert, Oriented x 3, Normal Insight, Normal Concentration Medical Decision Making ED Course and Treatment: 12/08/16 08:20 Impression: 26 year old female with right knee and right ankle pain. Differential Diagnosis included but are not limited to: right knee and right ankle sprain vs. fracture Plan: -- Right ankle X - ray -- Right patella X - ray -- Toradol -- Reassess and disposition Progress Notes: 12/08/16 11:05 Ankle X-ray: Creator : Janis Quispe V. FINDINGS: BONES: Normal. No fracture. JOINTS: Normal. No osteoarthritis. Ankle mortise maintained. Talar dome intact SOFT TISSUES: Normal. OTHER FINDINGS: None. IMPRESSION: Normal right ankle radiographs 12/08/16 11:10 Patella X-ray: Creator : Janis Quispe V. FINDINGS: BONES:Normal. No fractureA 6.4 x 2.5 cm lateral femoral condylar subchondral radiolucency - possible osteochondritis remnant or osteochondral lesion is noted. Its chronicity is unknown. Lateral patellar tilt noted. JOINTS:Normal. No osteoarthritis. JOINT EFFUSION:None. 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 No joint effusion. Soft tissue swelling antral medial- patellofemoral level. No fracture here suggested. No dislocation is suggested. Lateral patellar tilt noted Patient was placed in a knee immobilizer and given crutches with instructions. Humberto wrap to ankle. She was given instructions to follow up with her pmd and orthopedics. Rest, ice and elevation. - RAD Interpretation Radiology Orders: 12/08/16 09:32 ANKLE RIGHT 3 VIEWS ROUTINE [RAD] Stat KNEE W PATELLA RIGHT 3 VIEW [RAD] Stat - Medication Orders Current Medication Orders: Discontinued Medications Ketorolac Tromethamine (Toradol) 60 mg IM STAT STA Stop: 12/08/16 09:33 Last Admin: 12/08/16 10:12 Dose: 60 mg - Scribe Statement The provider has reviewed the documentation as recorded by the Scribe 12/08/2016 Abby Polanco Provider Scribe Attestation: All medical record entries made by the Scribe were at my direction and personally dictated by me. I have reviewed the chart and agree that the record accurately reflects my personal performance of the history, physical exam, medical decision making, and the department course for this patient. I have also personally directed, reviewed, and agree with the discharge instructions and disposition. Disposition/Present on Arrival - Present on Arrival Any Indicators Present on Arrival: No History of DVT/PE: No History of Uncontrolled Diabetes: No Urinary Catheter: No History Surgical Site Infection Following: None - Disposition Have Diagnosis and Disposition been Completed?: Yes Diagnosis: Knee strain, Ankle strain Disposition: HOME/ ROUTINE Disposition Time: 11:05 Patient Plan: Discharge Condition: IMPROVED Discharge Instructions (ExitCare): Ankle Sprain (ED), Knee Sprain (ED) Additional Instructions: Ms Rhodes, thank you for letting us take care of you today. Your provider was Dr. Alston. You were treated for Knee Sprain/Ankle Sprain. The emergency medical care you received today was directed at your acute symptoms. If you were prescribed any medication, please fill it and take as directed. It may take several days for your symptoms to resolve. Return to the Emergency Department if your symptoms worsen, do not improve, or if you have any other problems. Please contact your doctor or call one of the physicians/clinics you have been referred to that are listed on the Patient Visit Information form that is included in your discharge packet. Bring any paperwork you were given at discharge with you along with any medications you are taking to your follow up visit. Our treatment cannot replace ongoing medical care by a primary care provider (PCP) outside of the emergency department. Thank you for allowing the [facility] team to be part of your care today. If you had an X-Ray or CT scan: A Radiologist will review the ED reading if any change in treatment is needed we will contact you. If you had a blood, urine, or wound culture: It will take several days for the results, if any change in treatment is needed we will contact you. If you had an STI test: It will take 48 hours for the results. Please call after 1 week if you have not heard back. Referrals: [facility] [Outside] - Follow up with primary Bharati Birch MD [Staff Provider] - Follow up with primary Andres Gorman MD [Primary Care Provider] - Follow up with primary Forms: [facility] (Tongan), WORK NOTE
[2016-12-08 10:07] VITALS: BP 119/78; PULSE 63; RESP 16; TEMP 98.5; O2SAT 100
--- NOTE | 2016-12-08 10:59 | RAD ---
PROCEDURE: Right Ankle Radiographs. HISTORY: fall r/o fx COMPARISON: None FINDINGS: BONES: Normal. No fracture. JOINTS: Normal. No osteoarthritis. Ankle mortise maintained. Talar dome intact SOFT TISSUES: Normal. OTHER FINDINGS: None. IMPRESSION: Normal right ankle radiographs.
--- NOTE | 2016-12-08 11:02 | RAD ---
PROCEDURE: Right Knee Radiographs. HISTORY: fall r/o fx COMPARISON: None. FINDINGS: BONES: Normal. No fractureA 6.4 x 2.5 cm lateral femoral condylar subchondral radiolucency - possible osteochondritis remnant or osteochondral lesion is noted. Its chronicity is unknown. Lateral patellar tilt noted. JOINTS: Normal. No osteoarthritis. JOINT EFFUSION: None. 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 No joint effusion . Soft tissue swelling antral medial- patellofemoral level. No fracture here suggested. No dislocation is suggested. Lateral patellar tilt noted
== END 2016-12-08 11:05 | disposition home or self-care (01) ==
LOC: ED 09:27
DX: S96.911A Strain of unspecified muscle and tendon at ankle and foot level, right foot, initial encounter (principal); S86.911A Strain of unspecified muscle(s) and tendon(s) at lower leg level, right leg, initial encounter; X50.1XXA Overexertion from prolonged static or awkward postures, initial encounter; Y93.9 Activity, unspecified
CPT/HCPCS: 29530; 73562; 73610; 96372; 99285; J1885

== ENCOUNTER 2017-01-04 16:35 | Emergency (ER) | payer MEDICAID ==
[2017-01-04 16:45] VITALS: BMI 31.8
[2017-01-04 16:48] VITALS: BP 103/70; PULSE 97; TEMP 100
[2017-01-04] MEDS ORDERED: cefTRIAXone (Rocephin) 1 gm Inj IM STA (16:57)
[2017-01-04] MEDS ORDERED: Acetaminophen 160 mg/5 ml UD PO STA (16:58)
--- NOTE | 2017-01-04 17:01 | ED PDOC ---
Arrival/HPI - General Chief Complaint: ENT Problem Time Seen by Provider: 01/04/17 16:56 Historian: Patient - History of Present Illness Narrative History of Present Illness (Text): 01/04/17 16:58 26 y/o female, pmh including ovarian cyst, nkda, c/o throat pain and painful to swallow with fever x 2 days. Aching throat pain, aggravated by swallowing, no drooling, no night sweat, no difficulty swallowing but has pain, no difficulty turning the neck, no night sweat, no other medical or psychological complaints. Past Medical History - Provider Review Nursing Documentation Reviewed: Yes - Infectious Disease Hx of Infectious Diseases: None - Tetanus Immunization Tetanus Immunization: Unknown - Cardiac Hx Cardiac Disorders: No - Pulmonary Hx Respiratory Disorders: Yes Hx Asthma: Yes - Neurological Hx Neurological Disorder: Yes Hx Seizures: Yes - HEENT Hx HEENT Disorder: No - Renal Hx Renal Disorder: No - Endocrine/Metabolic Hx Endocrine Disorders: No - Hematological/Oncological Hx Blood Disorders: Yes Hx Anemia: Yes - Integumentary Hx Dermatological Disorder: No - Musculoskeletal/Rheumatological Hx Musculoskeletal Disorders: Yes - Gastrointestinal Hx Gastrointestinal Disorders: No - Genitourinary/Gynecological Hx Genitourinary Disorders: No Other/Comment: L ovarian cyst - Psychiatric Hx Psychophysiologic Disorder: No Hx Substance Use: No - Surgical History Hx Cholecystectomy: Yes - Anesthesia Hx Anesthesia: Yes Hx Anesthesia Reactions: No Hx Malignant Hyperthermia: No - Suicidal Assessment Feels Threatened In Home Enviroment: No Family/Social History - Physician Review Nursing Documentation Reviewed: Yes Family/Social History: Unknown Family HX Smoking Status: Heavy Smoker > 10 Cigarettes Daily Hx Alcohol Use: No Hx Substance Use: No Hx Substance Use Treatment: No Allergies/Home Meds Allergies/Adverse Reactions: Allergies No Known Allergies Allergy (Verified 01/04/17 16:45) Review of Systems - Review of Systems Constitutional: Fevers. absent: Fatigue Eyes: absent: Vision Changes ENT: Sore Throat. absent: Hearing Changes, Voice Changes, Rhinorrhea, Epistaxis Respiratory: absent: SOB, Cough Cardiovascular: absent: Chest Pain Gastrointestinal: absent: Abdominal Pain, Diarrhea, Nausea, Vomiting Skin: absent: Rash, Pruritis, Ulcer Neurological: absent: Headache, Dizziness, Gait Changes, Speech Changes, Facial Droop Physical Exam Vital Signs Reviewed: Yes Vital Signs Temp Pulse Resp BP Pulse Ox 01/04/17 16:47 100.0 F H 97 H 19 103/70 100 Temperature: Afebrile Blood Pressure: Normal Pulse: Regular Respiratory Rate: Normal Appearance: Positive for: Well-Appearing, Non-Toxic Pain Distress: Severe Mental Status: Positive for: Alert and Oriented X 3 - Systems Exam Head: Present: Atraumatic, Normocephalic Pupils: Present: PERRL Extroacular Muscles: Present: EOMI Conjunctiva: Present: Normal Mouth: Present: Moist Mucous Membranes Pharnyx: Present: ERYTHEMA, EXUDATE, TONSILS ENLARGED (with exudates), Other ( no kissing tonsils. ). No: Peritonsilar Swelling, Uvular Deviation, Muffled/ Hoarse Voice, Strider, Soft Palate/Uvular Edema Nose (Internal): Present: No Active Bleeding. No: Rhinorrhea, Septal Hematoma, Epistaxis Neck: Present: Normal Range of Motion, Lymphadenopathy (+lt. anterior ), Trachea Midline. No: Meningeal Signs, MIDLINE TENDERNESS, Paraspinal Tenderness Respiratory/Chest: Present: Clear to Auscultation, Good Air Exchange. No: Respiratory Distress, Accessory Muscle Use Cardiovascular: Present: Regular Rate and Rhythm, Normal S1, S2. No: Murmurs Abdomen: Present: Normal Bowel Sounds. No: Tenderness, Distention, Peritoneal Signs Back: Present: Normal Inspection Upper Extremity: Present: Normal Inspection. No: Cyanosis, Edema Lower Extremity: Present: Normal Inspection. No: Edema Neurological: Present: GCS=15, Speech Normal, Motor Func Grossly Intact, Gait Normal, Memory Normal Skin: Present: Warm, Dry, Normal Color. No: Rashes Lymphatic: Present: Cervical Adenopathy (+lt. anterior cervical) Psychiatric: Present: Alert, Oriented x 3, Normal Insight, Normal Concentration Medical Decision Making ED Course and Treatment: 01/04/17 17:03 -toradol/decadron/rocephine -No signs of peritonsillar abscess at this time. -Discharge home with clindamycin, ibuprofen, stay hydrated, soft food diet, stay hydrated, follow up with your own pmd and ENT within 2 days, return to the ER for any new or worsening signs or symptoms. - Medication Orders Current Medication Orders: Ceftriaxone Sodium (Rocephin) 1 gm IM STAT STA PRN Reason: Protocol Stop: 01/04/17 16:58 Dexamethasone (Decadron Inj) 10 mg IM STAT STA Stop: 01/04/17 16:58 Ketorolac Tromethamine (Toradol) 60 mg IM STAT STA Stop: 01/04/17 16:58 - PA / [employer] / Resident Statement / has reviewed & agrees with the documentation as recorded. Disposition/Present on Arrival - Present on Arrival Any Indicators Present on Arrival: No History of DVT/PE: No History of Uncontrolled Diabetes: No Urinary Catheter: No History of Decub. Ulcer: No History Surgical Site Infection Following: None - Disposition Have Diagnosis and Disposition been Completed?: Yes Diagnosis: Tonsillitis with exudate Disposition: HOME/ ROUTINE Disposition Time: 17:04 Patient Plan: Discharge Patient Problems: Current Active Problems Problem Status Onset Tonsillitis with exudate Acute Condition: GOOD Additional Instructions: -Discharge home with clindamycin, ibuprofen, stay hydrated, soft food diet, stay hydrated, follow up with your own pmd and ENT within 2 days, return to the ER for any new or worsening signs or symptoms. Prescriptions: Clindamycin [Cleocin] 300 mg PO QID #40 cap Famotidine [Pepcid] 20 mg PO BID #14 tab Ibuprofen [Motrin Tab] 800 mg PO TID PRN #21 tab PRN Reason: Other Referrals: Kirit Castrejon DO [Staff Provider] - Follow up with primary Forms: [employer] (Cuban), WORK NOTE
[2017-01-04 17:39] VITALS: RESP 17; O2SAT 99
== END 2017-01-04 17:39 | disposition home or self-care (01) ==
LOC: ED 16:35
DX: J03.90 Acute tonsillitis, unspecified (principal)
CPT/HCPCS: 96372; 99283; J0696; J1100; J1885